=== PATIENT | male | born 1960 | race Caucasian/White ===

== ENCOUNTER 2017-11-28 19:10 | Emergency (ER) | payer BC ==
[~2017-11-28] VITALS: Ht 182.9 cm; Wt 104.0 kg
[2017-11-28] MEDS ORDERED: ASPIRIN 81 MG TABLET CHEW PO ONE (19:30)
[2017-11-28] MEDS ORDERED: SODIUM CHLORIDE FLUSH 10ML SYR IVF ONE (19:30)
[2017-11-28] MEDS ORDERED: ASPIRIN 81 MG TABLET CHEW ONE (19:35)
[2017-11-28 19:51] LABS: BASOPHILS % (AUTO) 0 % (0-1); EOSINOPHILS % (AUTO) 3 % (1-7); LYMPHOCYTES # (AUTO) 1.04 x10^3/uL (1-3.4); LYMPHOCYTES % (AUTO) 10 % (22-44); MEAN CORPUSCULAR HEMOGLOBIN 29.9 pg (27.5-34.5); MEAN CORPUSCULAR HGB CONC 33.6 g/dL (33.2-36.2); MEAN CORPUSCULAR VOLUME 88.9 fL (81-97); MEAN PLATELET VOLUME 8.3 fL (7.4-10.4); MONOCYTES % (AUTO) 4 % (2-9); NEUTROPHILS % (AUTO) 83 % (42-75); PLATELET COUNT 267 x10^3/uL (130-400); RED BLOOD COUNT 5.08 x10^6/uL (4.38-5.82); RED CELL DISTRIBUTION WIDTH 13.5 % (9.4-14.8)
[2017-11-28 19:52] LABS: BASOPHILS # (AUTO) 0.02 x10^3/uL (0-0.1); EOSINOPHILS # (AUTO) 0.33 x10^3/uL (0-0.4); MD NO
[2017-11-28 20:05] LABS: ALANINE AMINOTRANSFERASE 29 U/L (12-78); ANION GAP 9 mmol/L (5-15); CALCIUM 9.5 mg/dL (8.5-10.1); CHLORIDE 107 mmol/L (98-107); CREATININE 1.06 mg/dL (0.7-1.3)
[2017-11-28 20:09] LABS: ALKALINE PHOSPHATASE 76 U/L (45-117); BILIRUBIN,TOTAL 0.4 mg/dL (0.2-1.0); TOTAL PROTEIN 7.4 g/dL (6.4-8.2); TROPONIN I < 0.015 ng/mL (0.000-0.045)
[2017-11-28 21:14] LABS: D-DIMER < 0.19 ug/mlFEU (0.00-0.52); PARTIAL THROMBOPLASTIN TIME 27 Seconds (25-31); PROTHROMBIN TIME 10.4 Seconds (9.6-11.5)
[2017-11-28 21:39] VITALS: BP 140/95
== END 2017-11-28 21:41 | disposition home or self-care (01) ==
LOC: ED 21:00
DX: R07.89 Other chest pain (principal)
CPT/HCPCS: 36415; 71046; 80053; 83690; 83880; 84484; 85025; 85379; 85610; 85730; 93005; 99285